=== PATIENT | female | born 1980 | race Caucasian/White ===

== ENCOUNTER 2025-06-16 09:03 | Emergency (ER) | payer BC, SELFPAY ==
[2025-06-16 09:06] VITALS: BP 149/92
--- NOTE | 2025-06-16 10:05 | ED.GENMED ---
History of Present Illness
General
Chief Complaint: Abdominal Pain
Source: patient
Exam Limitations: none
Time Seen by Provider: 06/16/25 10:04
Nursing documentation reviewed up to this point in time: agreed with
History of Present Illness
History of Present Illness:
40 yo female w no sig PMHX presents with persistent bowel issues and abdominal pain for almost three weeks. She reports 'thin, very dark' stools in the morning without substantial content, and experiences urgency to defecate after eating throughout
the day, although nothing is passed. The symptoms persist every day, leading to discomfort relieved only slightly by Pepto-Bismol, which she has taken twice in past 2 days. Despite the relief from Pepto-Bismol, there is recurring abdominal
discomfort, and last night she felt a burning sensation in the right side of her abdomen, accompanied by shortness of breath. She also reported shortness of breath again this morning. There is no fever, chills, or vomiting, has felt nausea but none
now.
The last typical bowel movement was more than two weeks ago. She mentions intermittent shortness of breath, headaches and tiredness, over past 2 days.
The patient reports mild pain now, rated 2-3/10, but it escalates to 8/10 at worst. Consuming bland food like oatmeal seems to offer temporary relief, although it exacerbates the urgency to defecate. She denies being incontinent but was noted to
have some stool in her underwear.
Past History
Past History
ED Past Medical History: None
ED Past Surgical History: None
Social History
Tobacco: Non-smoker
Alcohol: None
Personal:
Living: with family
Employment: Not employed
Review of Systems
Review of Systems
Allergies reviewed?: Yes
All Other Systems: ROS reviewed and negative except as documented in HPI and ROS
Constitutional: Denies fever
ABD/GI: Reports abdominal pain, nausea, constipated and anorexia; Denies vomiting
: Reports no symptoms
Musculoskeletal: Reports no symptoms
Skin: Reports no symptoms
Phy Exam
Physical Exam
Physical Exam:
GENERAL: No acute distress. A&Ox3.
CONSTITUTIONAL: Afebrile.
EYES: clear, conjunctivae normal
ENMT: moist mucus membranes, Pharynx nl
RESPIRATORY: Regular respirations, nonlabored, lungs clear.
CARDIOVASCULAR: Regular rate and rhythm, no murmurs, no rubs.
GI: Soft, generally tender, more so right side abdomen, no palpable masses., normal BS
Rectal: External hemorrhoids, none thrombosed. No stool in rectal vault. Mucus on gloved finger hematest negative
MUSCULOSKELETAL: Moves with ease. Well perfused.
SKIN: Warm, dry, pink
PSYCH: Anxious, tearful mood and affect. Well kept, interactive and appropriate
NEUROLOGIC: Awake, alert and oriented. No focal neurological deficits
Course
Orders/Labs/Results
Orders:
Orders
06/16/25 10:06
CT Abd/pel W Iv And Oral Contr Urgent
Comment:
Reason For Exam: L side abd pain
Iohexol [Omnipaque] See Protocol PO NOW STA
Test Result ONCE
06/16/25 10:07
0.9% Sodium Chloride 1000 ml [Nss] 1,000 ml IV BOLUS
06/16/25 10:25
Complete Blood Count/With Diff Urgent
Comprehensive Metabolic Panel Urgent
HCG, Serum Qualitative Screen Urgent
Lipase Urgent
06/16/25 10:27
Urinalysis Reflex To Culture Urgent
Date Specimen was Collected: 06/16/25
Time Specimen was Collected: 10:26
Abnormal Lab Results
06/16/25
10:25
RBC 4.01 L 10^6/uL
(4.20-5.40)
Hgb 11.3 L g/dL
(12.0-16.0)
Hct 34.4 L %
(37.0-47.0)
MCHC 32.8 L g/dL
(33.0-37.0)
Lymphocytes % 20.2 L %
(20.5-51.1)
BUN 6 L mg/dl
(7-17)
Total Bilirubin 1.5 H mg/dl
(0.2-1.3)
06/16/25 10:25
06/16/25 10:25
Vital Signs
Initial and Last Documented VS:
Initial Vital Signs
Pulse Resp BP Pulse Ox
72 16 149/92 99
06/16/25 09:06 06/16/25 09:06 06/16/25 09:06 06/16/25 09:06
Last Documented Vital Signs
Temp Pulse Resp BP Pulse Ox
98.3 F 72 16 116/63 99
06/16/25 14:17 06/16/25 09:06 06/16/25 09:06 06/16/25 14:13 06/16/25 12:59
MDM/Problems Addressed
Differential Diagnosis Includes:
Contrast radiology report read: IBS, gastroenteritis, PUD, colitis
MDM/Problems Addressed:
40 yo female w no sig PMHX presents with persistent bowel issues and abdominal pain for almost three weeks. She reports 'thin, very dark' stools in the morning without substantial content, and experiences urgency to defecate after eating throughout
the day, although nothing is passed. The symptoms persist every day, leading to discomfort relieved only slightly by Pepto-Bismol, which she has taken twice in past 2 days. Despite the relief from Pepto-Bismol, there is recurring abdominal
discomfort, and last night she felt a burning sensation in the right side of her abdomen, accompanied by shortness of breath. She also reported shortness of breath again this morning, she feels this may be related to her anxiety about her abdominal
symptoms. There is no fever, chills, or vomiting, has felt nausea but none now.
The last typical bowel movement was more than two weeks ago. She mentions intermittent shortness of breath, headaches and tiredness, over past 2 days.
The patient reports mild pain now, rated 2-3/10, but it escalates to 8/10 at worst. Consuming bland food like oatmeal seems to offer temporary relief, although it exacerbates the urgency to defecate. She denies being incontinent but was noted to
have some stool in her underwear.
No known exposures, no recent travel
Afebrile, NAD
10:50 AM:
CBC with no clinically significant abnormality
CMP: Normal
UA: Negative
Lipase:Normal
hCG negative
2:[address] abdomen pelvis with IV and oral contrast radiology report read: IMPRESSION:
1. Nonobstructive left nephrolithiasis.
2. Right adnexal cysts measuring up to 2.1 and 1.6 cm in diameter. Within expected size limits for functional cysts or dominant follicles in a premenopausal patient. If there is clinical concern, could be further evaluated with follow-up
ultrasound. There is trace free fluid within the pelvis which is also likely within physiologic limits for a premenopausal patient.
3. Indeterminate hepatic 1.5 cm decreased attenuation lesion as above, most likely a hemangioma but not definitive on this examination.
Nothing to explain pts symptoms.
Pt has had no SOB during stay.
Recommend colonoscopy
Copy of CT report given to pt. She will see her GI doctor tomorrow as scheduled.
*Pulse Oximetry
SaO2: 99
Oxygen Mode of Delivery: Room air
Patient hypoxic: not evaluated
*Critical Care Note
Total Time (30-74mins, 75-104mins- exclusive of procedures): Not Applicable
ED Attending Note
-
Portions of this chart may have been created with voice recognition software.� Occasional wrong word or��sound alike� substitutions may have occurred due to the inherent limitations of voice recognition software.
Discharge Plan
Departure
Patient Disposition: Home (Routine Discharge)
Date of Disposition: 06/16/25
Time of Disposition: 14:13
Patient with high blood pressure during this ER visit?: No
Condition: Good
Discharge Problem:
Abdominal pain
Referrals:
[facility] [Other] - Keep scheduled appt
Sharona Gilelspie CRNP [Family Provider, General]
Activity Restrictions/Additional Instructions:
As we discussed, nothing worrisome in your exam here today. Keep your appointment with your GI doctor tomorrow. They will most likely schedule a colonoscopy.
Take copy of your CAT scan report as well as your lab work with you tomorrow
Interventions
Interventions:
*Risk Screen - Suicide Last Done: 06/16/25 10:35
*Neglect/Abuse Screening Last Done: 06/16/25 10:35
*ED- Fall Risk Assessment Last Done: 06/16/25 10:35
*ED COVID-19 Vaccine History Last Done: 06/16/25 10:35
*Nursing Disposition Last Done: 06/16/25 14:24
UD-Urfxgo-Dvcovfbpjo Assessment Last Done: 06/16/25 10:35
Discharge Date and Time
Discharge Date/Time: 06/16/25 14:25
Print Language: BURMESE
[2025-06-16 10:24] VITALS: BP 114/77
[2025-06-16] MEDS: NSS 1000 IV (10:32)
[2025-06-16] MEDS: OMNIPAQUE 50 ML PO (10:32)
[2025-06-16 10:34] VITALS: BMI 24.2
[2025-06-16 10:37] LABS: Hematocrit 34.4 % (37.0-47.0); Hemoglobin 11.3 g/dL (12.0-16.0); Mean Corp Hgb Conc. 32.8 g/dL (33.0-37.0); Mean Corpuscular Volume 85.8 fL (81.0-99.0); Nucleated Red Blood Cells % 0 %; Platelet Count 251 10^3/uL (130-400); Red Cell Dist. Width 12.7 % (11.5-14.5)
[2025-06-16 10:41] LABS: Urine Character Clear (Clear)
[2025-06-16 10:48] LABS: HCG, Serum Qualitative Screen Negative
[2025-06-16 10:52] LABS: ALT (SGPT) 14 U/L (0-35); AST (SGOT) 22 U/L (14-36); Albumin 4.7 g/dl (3.5-5.0); Alkaline Phosphatase 39 U/L (38-126); Blood Urea Nitrogen 6 mg/dl (7-17); Calcium 8.9 mg/dl (8.4-10.2); Carbon Dioxide 26 mmol/L (22-30); Chloride 107 mmol/L (98-107); Estimated Creatinine Clearance 104 ml/min; Glucose 91 mg/dl (70-99); Lipase 90 U/L (23-300); Potassium 3.9 mmol/L (3.5-5.1); Sodium 138 mmol/L (135-145); Total Protein 7.4 g/dl (6.3-8.2); eGFR > 60.00
[2025-06-16 11:00] VITALS: BP 116/71
[2025-06-16 12:05] VITALS: BP 112/61
[2025-06-16 13:00] VITALS: BP 115/71
[2025-06-16 14:13] VITALS: BP 116/63
== END 2025-06-16 14:25 | disposition home or self-care (01) ==
LOC: EMR 09:03
PROVIDERS: Registered Nurse; EMERGENCY PHYSICIAN Emergency Medicine; FAMILY PHYSICIAN Nurse Practitioner
DX: R10.9 Unspecified abdominal pain (principal)
CPT/HCPCS: 99284; 96360; 74177; 80053; 81003; 83690; 84703; 85025; Q9967